=== PATIENT | female | born 1985 | race Caucasian/White ===

== ENCOUNTER 2021-05-31 17:10 | Emergency (ER) | payer OTHER ==
[~2021-05-31 17:10] MED LIST: BENTYL 20MG TAB20 MG PO; COLACE100 MG PO; IBU800 MG PO; ZOFRAN4 MG PO
[2021-05-31 18:01] LABS: HEMOGLOBIN 13.4 gm/dl (12.3-15.3); RED BLOOD COUNT 4.43 M/UL (4.00-5.10); WHITE BLOOD COUNT 10.1 K/UL (4.5-11.0)
[2021-05-31 18:23] LABS: BUN/CREATININE RATIO 13 (0-10)
[2021-05-31] MEDS ORDERED: CEFPODOXIME PR200 MG PO (21:45)
[2021-05-31] MEDS ORDERED: KLOR-CON M1010 MEQ PO (21:45)
== END 2021-05-31 21:33 | disposition home or self-care (01) ==
LOC: ER1 17:10
DX: N39.0 Urinary tract infection, site not specified (principal); E87.6 Hypokalemia; Z90.710 Acquired absence of both cervix and uterus; F17.210 Nicotine dependence, cigarettes, uncomplicated
CPT/HCPCS: 80053; 81001; 83690; 84703; 85025; 87077; 87086; 87186; 96374; 96375; 99283; J0696; J1885; J2270; J2405; Q9967

== ENCOUNTER 2021-06-15 13:59 | Emergency (ER) | payer OTHER ==
[~2021-06-15 13:59] MED LIST changes: +CEFPODOXIME PR200 MG PO; +KLOR-CON M1010 MEQ PO
== END 2021-06-15 16:32 | disposition home or self-care (01) ==
LOC: ER1 13:59
DX: Z20.822 Contact with and (suspected) exposure to COVID-19 (principal); F17.200 Nicotine dependence, unspecified, uncomplicated
CPT/HCPCS: 99283; U0002

== ENCOUNTER 2021-06-30 09:33 | Emergency (ER) | payer OTHER | END 2021-06-30 13:15 | disposition home or self-care (01) | LOC: ER1 09:33 | DX: R53.83 Other fatigue (principal); F17.200 Nicotine dependence, unspecified, uncomplicated; Z20.822 Contact with and (suspected) exposure to COVID-19 | CPT/HCPCS: 99283; U0003 ==

== ENCOUNTER 2022-01-20 11:59 | Emergency (ER) | payer OTHER ==
[2022-01-20 13:10] LABS: HEMOGLOBIN 14.5 gm/dl (12.3-15.3); RED BLOOD COUNT 4.92 M/UL (4.00-5.10); WHITE BLOOD COUNT 7.3 K/UL (4.5-11.0)
[2022-01-20 13:36] LABS: BUN/CREATININE RATIO 15 (0-10)
== END 2022-01-20 19:33 | disposition short-term general hospital (02) ==
LOC: ER1 11:59
PROVIDERS: Physician Assistant
DX: K50.00 Crohn's disease of small intestine without complications (principal); R10.13 Epigastric pain; F17.200 Nicotine dependence, unspecified, uncomplicated; Z90.710 Acquired absence of both cervix and uterus; E87.6 Hypokalemia
CPT/HCPCS: 80053; 81001; 83690; 85025; 85652; 86140; 96374; 96375; 96376; 99285; C9113; J1170; J2270; J2405; J2930; Q9967